=== PATIENT | female | born 1970 | race Caucasian/White ===

== ENCOUNTER 2024-01-31 08:24 | Emergency (ER) | payer OTHER ==
--- NOTE | 2024-01-31 08:33 | ED Physician Documentation ---
PD HPI CHEST PAIN - Stated complaint Stated Complaint: SEVERE CP - History obtained from History obtained from: Patient - History of Present Illness Timing - onset: How many weeks ago (1 week ago had chest to back pain new onset with activity and breathing. Seen at [place], [place] ED with eval of ECG, labs, CXR and CT chest to eval for PE, per patient and spouse. No findings for pain itself. Noted incidental were retroperitoneal lymph nodes and is getting follow up to eval.) Timing - onset during: Sleep (She had only milder pains through the week and then in bed [employer] had a severe abrupt worsening of pain left chest/back wrapping around left side. No pain on right. Had developed puprple bruising left back in the past week. Had had a fall and struck back prior to initial eval last week.) Timing - details: Abrupt onset (today with abrupt severe pain similar area but much worse than last week.) Quality: Sharp, Tearing, Stabbing, Pain Location: Left chest Radiation: Back. No: Neck, Abdominal Associated symptoms: Shortness of air, Nausea, Feeling faint / dizzy. No: Palpitations Similar symptoms before: No diagnosis Recently seen: Emergency Dept (see above) Review of Systems Constitutional: denies: Fever, Chills Cardiac: reports: Chest pain / pressure (just the past week). denies: Palpitations, Pedal edema, Calf pain Respiratory: denies: Dyspnea, Cough, Wheezing GI: denies: Abdominal Pain, Vomiting, Diarrhea PD PAST MEDICAL HISTORY - Present Medications Home Medications: Ambulatory Orders Medication Instructions Recorded Confirmed HYDROmorphone [Dilaudid] 2 mg PO Q6H PRN #25 tablet 01/31/24 Lidocaine Patch 5% [Lidoderm Patch] 1 patch TOP DAILY PRN #10 patch 01/31/24 Meloxicam [Mobic] 7.5 mg PO BID 10 Days #30 tablet 01/31/24 Ondansetron Odt [Zofran] 4 mg TL Q6H PRN #20 tablet 01/31/24 - Allergies Allergies/Adverse Reactions: Allergies Allergy/AdvReac Type Severity Reaction Status Date / Time No Known Drug Allergies Allergy Verified 01/31/24 08:47 - Social History Does the pt smoke?: No Does the pt drink ETOH?: Yes ETOH Use: Other (occasional, denies regular nor heavy) Does the pt have substance abuse?: No PD ED PE NORMAL - Vitals Vital signs reviewed: Yes - General General: Alert and oriented X 3, Well developed/nourished, Other (appears in severe pain chrst and back. Brusing noted left posterolateral chest at about 9- 10th rib level. Bruising itself is not tender. Focal rib tenderness above that about 7-8th level. ) - Neck Neck: Supple, no meningeal sign, No adenopathy - Cardiac Cardiac: RRR, No murmur - Respiratory Respiratory: No respiratory distress, Clear bilaterally - Abdomen Abdomen: Soft, Non tender - Derm Derm: Normal color, Warm and dry - Extremities Extremities: No edema, No calf tenderness / cord - Neuro Neuro: Alert and oriented X 3, No motor deficit, No sensory deficit, Normal speech Results - Vitals Vitals: Vital Signs - 24 hr 01/31/24 01/31/24 01/31/24 09:30 10:00 10:30 Heart Rate 90 94 85 Respiratory 18 18 16 Rate Blood Pressure 142/86 H 138/82 H 132/82 H O2 Saturation 98 93 94 01/31/24 01/31/24 01/31/24 11:00 11:30 12:00 Heart Rate 92 80 85 Respiratory 18 18 16 Rate Blood Pressure 134/86 H 132/80 H 138/86 H O2 Saturation 96 96 96 01/31/24 01/31/24 12:30 12:50 Heart Rate 77 86 Respiratory 17 15 Rate Blood Pressure 150/81 H 148/84 H O2 Saturation 95 94 Oxygen O2 Source Room air - EKG (time done) 08:33 EKG releavant findings:: EKG personally interpreted by author of this note. Relevant findings are: Rate: Rate (enter#) (92) Rhythm: NSR [place]: Normal Intervals: Normal MT QRS: Normal Ischemia: Normal ST segments. No: ST elevation c/w ischemia, ST depression Compare to prior EKG: Old EKG unavailable - Labs Labs: Laboratory Tests 01/31/24 01/31/24 01/31/24 08:50 08:50 08:50 WBC 9.4 RBC 4.55 Hgb 14.6 Hct 42.9 MCV 94.3 MCH 32.1 H MCHC 34.0 RDW 12.8 Plt Count 323 MPV 8.2 Neut # (Auto) 6.5 Lymph # (Auto) 2.0 [place] # (Auto) 0.8 Eos # (Auto) 0.1 Baso # (Auto) 0.0 Absolute Nucleated RBC 0.00 Nucleated RBC % 0.0 D-Dimer 309.2 H Sodium 137 Potassium 3.7 Chloride 100 L Carbon Dioxide 25 Anion Gap 12.0 BUN 11 Creatinine 0.5 L Estimated GFR (MDRD) 130 Glucose 89 Calcium 9.7 Total Bilirubin 0.4 AST 21 ALT 19 Alkaline Phosphatase 42 Troponin I High Sens 5.1 B-Natriuretic Peptide Total Protein 7.4 Albumin 4.7 Globulin 2.7 Albumin/Globulin Ratio 1.7 Lipase 38 01/31/24 08:50 WBC RBC Hgb Hct MCV MCH MCHC RDW Plt Count MPV Neut # (Auto) Lymph # (Auto) [place] # (Auto) Eos # (Auto) Baso # (Auto) Absolute Nucleated RBC Nucleated RBC % D-Dimer Sodium Potassium Chloride Carbon Dioxide Anion Gap BUN Creatinine Estimated GFR (MDRD) Glucose Calcium Total Bilirubin AST ALT Alkaline Phosphatase Troponin I High Sens B-Natriuretic Peptide 32 Total Protein Albumin Globulin Albumin/Globulin Ratio Lipase - Rads (name of study) chest xray Relevant Findings:: Prelim report reviewed (no acute process), EMP independent interpretation of test (evident is posterior minimally displaced 7th rib fracture. No effusion. No PTX. ) CTA chest for aorta Relevant Findings:: EMP independent interpretation of test, See rad report (normal aorta and major vasculature. No central PE. 7th rib fracture noted with some pulmonary contusion in the area. No effusions. ) PD Medical Decision Making - ED course Complexity details: reviewed results (ECG and troponin are normal. No evidence for ACS. ), re-evaluated patient, considered differential, d/w patient ED course: had had a fall during night last week and had pain left chest wrapping around. Seen at [facility] ER in [place] and she/spouse describe workup up of ECG, blood tests, CXR and CT chest to eval for blood clots. Negative workup except for finding of some lymph nodes retroperitoneal and being referred for Bx/eval to exclude lymphoma. Pt here on trip current and will have further workup for that on return home. Was having less pain in chest/back, using Tylenol PRn. Overnight in bed, had abrupt onset of severe pain in left chest radiating into left thoracic area and feeling of it wrapping around left chest. Feeling dyspnea, pain worse with breathing. She and spouse note she had developed bruising left posterolateral chest/back since the time of previous ED visit. But only having mild left chest pains at times, worse with activity. EG and troponin here are normal. Pain CXR shows a rib fracture in area of the pain. This was not diagnosed by [facility] according to pt, so unclear if hariline fracture that shifted causing more pain or new injury, but given prior CP in area and the bruising of chestwall interim, I presume it is prior fracture that shifted and caused intercostal nerve impingement with such pain. However the severe pain radiating to the back could also result from vascular process, and could be traumatic, such as arotic dissection. The CT at [facility] was for PE it sounds, and thus the timing could miss aortic process. Shared discussion with pt to re-do CTA with emphasis on aortic as small dissection could have been missed with the prior study technique. CTA done and aorta appears normal. Identified is the rib fracture and some pulmonary contusion. Certainly could be causing some pleurisy inflammation as well. Treat with NSAIDs and pain meds. Here in ED, the pain is much more controlled after sequential doses of Dilaudid along with Toradol. Oxycodone and Hydrococone have made her very nauseated in the past, so can try oral dilaudid as did not seem to do that here (concurrent with Zofran). She is surpirsed to hear about the rib fracture as did not think the fall prior was that impactful, but it does explain the pain and worsening here if assume it shifted and impinged intercostal nerve briefly. She denies excess alcohol use or passing out. I did not ask spouse about that per se. Departure - Departure Disposition: 01 Home, Self Care Clinical Impression: Left-sided chest pain Rib fracture Qualifiers: Encounter type: initial encounter Rib fracture type: single rib Fracture type: closed Laterality: left Qualified Code(s): S22.32XA - Fracture of one rib, left side, initial encounter for closed fracture Condition: Stable Record reviewed to determine appropriate education?: Yes Instructions: ED Fx Rib Prescriptions: HYDROmorphone [Dilaudid] 2 mg PO Q6H PRN #25 tablet PRN Reason: Pain Lidocaine Patch 5% [Lidoderm Patch] 1 patch TOP DAILY PRN #10 patch PRN Reason: pain Meloxicam [Mobic] 7.5 mg PO BID 10 Days #30 tablet Ondansetron Odt [Zofran] 4 mg TL Q6H PRN #20 tablet PRN Reason: Nausea / Vomiting Comments: Your EKG and blood test called troponin are normal. No signs of heart attack or heart failure. Your chest x-ray did not show any signs of collapsed lung or pneumonia or such. It was visible a likely rib fracture on the left side which was better identified on the CT scan. Otherwise the CT scan did not show any signs of vascular problems, in particular no aneurysms, aortic dissections, blood clots. There was seen a little bit of bruising in the lung tissue just around the area of the rib fracture. I presume this is what was hurting for you. My presumption would be a nondisplaced fracture of the rib with a previous fall or such and it likely displaced or shifted and was sitting on the intercostal nerve causing such significant pain and wrapping around towards the front. Rib fractures tend to shift commonly until the form enough bone callus to hold in position. This is typically at a couple of weeks. Meanwhile I would assume some pain from the fracture especially if it is now just slightly out of place. It is hard to manipulate in the back in place so typically with just regular movement activity will align. Anti-inflammatory such as meloxicam can be useful. Also topical treatment in the area like a lidocaine patch. Activity as tolerated. Use Tylenol/acetaminophen 500 to 650 mg regularly 4 times a day over the next week to 10 days to help with pain as well. To that add hydromorphone every 6 hours if needed for pain. This seemed to not give you the nausea that you get from other pain medicines. He can combine it with ondansetron/Zofran if needed for nausea. I would anticipate further improving of this over the next week or so but a broken rib will typically take about 4 weeks for full healing. I sent your prescriptions to [facility] pharmacy. I am prescribing a short course of narcotic pain medication for you. These are potentially dangerous and addictive medications that should be used carefully. These medications may constipate you. Take an [id number] stool softener such as docusate twice daily with plenty of water while taking these medications. If you go 24 hours without a bowel movement, take [id number] MiraLAX, per package instructions. Do not drink or drive while taking these medications. If you received narcotic or sedating medications while in the emergency department do not drive for 24 hours. Store this medication in a safe, secure place and out of reach of children. It is a violation of federal law to give or sell this medication to another person or to use in a manner other than prescribed. The ED will not refill narcotic prescriptions, including prescriptions lost or stolen. You can dispose of unwanted medications at the [facility]'s office or at several pharmacies such as [facility]. Forms: PCP List Discharge Date/Time: 01/31/24 12:50
[2024-01-31 09:01] LABS: BASOPHILS % (AUTO) 0.3 %; EOSINOPHILS # (AUTO) 0.1 10^3/uL (0.0-0.7); EOSINOPHILS % (AUTO) 1.3 %; HCT - HEMATOCRIT 42.9 % (37.0-47.0); HGB - HEMOGLOBIN 14.6 g/dL (12.0-16.0); LYMPHOCYTES % (AUTO) 20.8 %; MEAN CORPUSCULAR HEMOGLOBIN 32.1 pg (27.0-31.0); MEAN CORPUSCULAR VOLUME 94.3 fL (81.0-99.0); MEAN PLATELET VOLUME 8.2 fL (7.9-10.8); MONOCYTES # (AUTO) 0.8 10^3/uL (0.0-1.0); MONOCYTES % (AUTO) 8.2 %; NEUTROPHILS # (AUTO) 6.5 10^3/uL (1.5-6.6); NEUTROPHILS % (AUTO) 69.2 %; PLT - PLATELET COUNT 323 10^3/uL (130-450); RED BLOOD COUNT 4.55 10^6/uL (4.20-5.40); RED CELL DISTRIBUTION WIDTH 12.8 % (12.0-15.0); WHITE BLOOD COUNT 9.4 x10^3/uL (4.8-10.8)
[2024-01-31] MEDS: ONDANSETRON 4 MG/2 ML VIAL IVP STA (09:03)
[2024-01-31] MEDS: MAG HYDROX/AL HYDROX/SIMETH 30 ML UDC PO STA (09:03)
[2024-01-31] MEDS: HYDROmorphone 1 MG/ML CARPUJECT IVP STA ×3 (09:03→12:36)
[2024-01-31] MEDS: KETOROLAC 15 MG/ML VIAL IVP STA ×2 (09:10→12:36)
[2024-01-31 09:17] LABS: ALBUMIN 4.7 g/dL (3.2-5.5); ALBUMIN/GLOBULIN RATIO 1.7 (1.0-2.2); BILIRUBIN,TOTAL 0.4 mg/dL (0.2-1.0); CALCIUM 9.7 mg/dL (8.5-10.3); CREATININE 0.5 mg/dL (0.6-1.3); POTASSIUM 3.7 mmol/L (3.5-4.5); TOTAL PROTEIN 7.4 g/dL (6.4-8.9)
[2024-01-31 09:21] LABS: TROPONIN I HIGH SENSITIVITY 5.1 ng/L (2.3-14.8)
[2024-01-31] MEDS: MORPHINE 2 MG/ML CARPUJECT IVP STA (09:22)
--- NOTE | 2024-01-31 09:36 | XRAY Report ---
PROCEDURE: Chest 1V INDICATIONS: Chest Pain TECHNIQUE: One view of the chest was acquired. COMPARISON: None. FINDINGS: Surgical changes and devices: None. Lungs and pleura: No pleural effusions or pneumothorax. Lungs are clear. Mediastinum: Mediastinal contours appear normal. Heart size is normal. Bones and chest wall: No suspicious bony lesions. Overlying soft tissues appear unremarkable. IMPRESSION: No acute cardiopulmonary process. Reviewed by: Lennox Newell MD on 01/31/2024 9:34 AM PDT Approved by: Lennox Newell MD on 01/31/2024 9:34 AM PDT Station ID: [id number]
[2024-01-31] MEDS ORDERED: iohexoL-300 100 ML VIAL ONE (09:56)
[2024-01-31] MEDS: iohexoL-300 100 ML VIAL IVP ONE (10:23)
--- NOTE | 2024-01-31 10:42 | CT Report ---
PROCEDURE: Angio Chest INDICATIONS: abrupt left chest/back pain, eval for aorta CONTRAST: 80ml omni 300 TECHNIQUE: After the administration of intravenous contrast, 2 mm axial images were acquired from the pulmonary apices to the posterior costophrenic angles during the arterial phase. In addition, 1 mm lung kernel and 5 mm soft tissue kernel reconstructions were performed. 3-dimensional coronal oblique maximum int ensity projection (MIP) reformats, 8 mm axial MIP, and 5 mm coronal and sagittal MPR reformats were t hen performed through the thorax. For radiation dose reduction, the following was used: automated exp osure control, adjustment of mA and/or kV according to patient size. COMPARISON: None. FINDINGS: Image quality: Excellent. Large vessels: Exam was not designed for evaluation of pulmonary arteries however there is no large c entral pulmonary artery filling defect identified. The ascending aorta measures 3.5 cm at the level o f pulmonary artery. The descending aorta measures 2.2 cm at the level pulmonary artery. No dissection flap is identified. No mural thrombus is present. Lungs and pleura: Mild groundglass opacity and volume loss along the posterior left lung most promine nt at the level of the rib fracture extending down to the lung bases. No pleural effusions. No pneum othorax. No suspicious pulmonary nodules which require follow up. Mediastinum: Heart size is normal. No pericardial effusion. No large vessel abnormality. No mediastin al adenopathy by size criteria. Chest wall and lower neck: Thyroid is unremarkable. No axillary or supraclavicular adenopathy by size . Bones: Mild displaced fracture of the posterior left seventh rib. Upper Abdomen: Hepatic steatosis. IMPRESSION: No aortic dissection. Mild ascending aortic ectasia. Nondisplaced left posterior rib fracture. Opacities within the left lung likely reflect atelectasis however given recent history of probable tr auma cannot exclude pulmonary contusion. Reviewed by: Edi Chu MD on 01/31/2024 9:41 AM [facility] Approved by: Edi Chu MD on 01/31/2024 9:41 AM [facility] Station ID: [id number]
[2024-01-31 12:52] VITALS: BP 148/84; O2SAT 94
== END 2024-01-31 12:50 | disposition home or self-care (01) ==
LOC: ED 08:24
DX: S22.32XA Fracture of one rib, left side, initial encounter for closed fracture (principal); X58.XXXA Exposure to other specified factors, initial encounter
CPT/HCPCS: 36415; 71045; 71275; 80053; 83690; 83880; 84484; 85025; 85379; 93005; 96374; 96375; 96376; 99284; 99285; A9270; J1170; Q9967